=== PATIENT | female | born 1985 | race Hispanic/Latino ===

== ENCOUNTER → 2022-02-10 | Outpatient (CLI) | payer MEDICAID | END | disposition home or self-care (01) | LOC: RAH 10:50 | PROVIDERS: ATTEND Otolaryngology Plastic Surgery within the Head & Neck | DX: E04.1 Nontoxic single thyroid nodule (principal); K21.9 Gastro-esophageal reflux disease without esophagitis; R13.10 Dysphagia, unspecified | CPT/HCPCS: 76536 ==